=== PATIENT | female | born 1970 | race Caucasian/White ===

== ENCOUNTER 2021-01-13 15:20 | Emergency (ER) | payer OTHER | END 2021-01-13 18:10 | disposition home or self-care (01) | LOC: ER1 15:20 | DX: S62.101A Fracture of unspecified carpal bone, right wrist, initial encounter for closed fracture (principal); W19.XXXA Unspecified fall, initial encounter | CPT/HCPCS: 29105; 99283 ==

== ENCOUNTER 2021-01-17 11:50 | Emergency (ER) | payer OTHER ==
[2021-01-17] MEDS ORDERED: PERCOCET 5-3251 EACH PO (13:43)
== END 2021-01-17 15:00 | disposition home or self-care (01) ==
LOC: ER1 11:50
DX: S52.571A Other intraarticular fracture of lower end of right radius, initial encounter for closed fracture (principal); S52.614A Nondisplaced fracture of right ulna styloid process, initial encounter for closed fracture; W19.XXXA Unspecified fall, initial encounter; Y92.009 Unspecified place in unspecified non-institutional (private) residence as the place of occurrence of the external cause
CPT/HCPCS: 29125; 73110; 73200; 99284